=== PATIENT | male | born 1955 | race Caucasian/White ===

== ENCOUNTER 2020-01-25 12:53 | Inpatient (IN) | payer MEDICAID, MEDICARE ==
[2020-01-25 21:23] VITALS: BP 147/47
[2020-01-25] MEDS ORDERED: Magnesium Hydroxide (MOM) 30 mL UDC PO PRN (22:24)
[2020-01-25] MEDS ORDERED: Maalox 30 mL Cup PO PRN (22:24)
[2020-01-26] MEDS ORDERED: OMEPRAZOLE PO SCH (09:00)
[2020-01-26] MEDS ORDERED: SODIUM BICARBONATE PO SCH (09:00)
[2020-01-26] MEDS ORDERED: [UNRECOGNIZED DRUG - OTHER] PO SCH (09:00)
[2020-01-26] MEDS ORDERED: POTASSIUM CHLORIDE 8 MEQ PO SCH (09:00)
[2020-01-26] MEDS ORDERED: LOSARTAN PO SCH (09:00)
[2020-01-26] MEDS ORDERED: [UNRECOGNIZED DRUG - OTHER] PO SCH (09:00)
[2020-01-26] MEDS ORDERED: HYDROCHLOROTHIAZIDE PO SCH (09:00)
[2020-01-26 15:00] LABS: CHOLESTEROL 149 mg/dL (<200); LDL CHOLESTEROL 74 mg/dL (75-193); TRIGLYCERIDES 29 mg/dL (<150)
--- NOTE | 2020-01-26 15:05 | History and Physical ---
History of Present Illness - HPI Chief Complaint: Psychosis HPI: * Patient transferred from [facility] for Acute Psychosis * Admitted to [facility] from [facility] Vital Signs: Last Vital Signs Temp 97.1 F 01/26/20 06:14 Pulse 122 01/26/20 09:27 Resp 20 01/26/20 06:14 BP 176/102 01/26/20 09:27 Pulse Ox 96 01/26/20 06:14 Past Medical History Cardiovascular: Report: HTN Pulmonary: Report: No Pertinent Hx AUTO DAMAGE APPRAISER: Report: Other (Parkinson's) GI: Report: No Pertinent Hx Psych: Report: Psychosis Musculoskeletal: Report: No Pain Rheumatologic: Report: No pertinent Hx Infectious Disease: Report: No Pertinent Hx Renal/: Report: No Pertinent Hx Endocrine: Report: No Pertinent Hx Dermatology: Report: No Pertinent Hx - Past Surgical History Past Surgical History: No pertinent Hx Family Medical History - Family Member Mother History Unknown: Yes Social History Smoke: No Alcohol: None Drugs: None Lives: Detention - Medications Home Medications: Home Medication Medication Instructions Recorded Type Benztropine [Cogentin*] 1 mg PO HS 01/25/20 History Clonazepam 0.5 mg PO BID 01/25/[address] [Depakote DR] 250 mg PO TID 01/25/20 History Lorazepam [Ativan] 1 mg PO Q6H PRN 01/25/20 History Losartan/Hydrochlorothiazide 1 tab PO DAILY 01/25/20 History [Losartan-Hctz 100-12.5 mg Tab] Omeprazole/Sodium Bicarbonate 20 mg PO DAILY 01/25/20 History [Omeprazole-Bicarb 20-1,100 Cap] Potassium Chloride 8 meq PO DAILY 01/25/20 History Primidone [Mysoline] 50 mg PO HS 01/25/20 History - Allergies Allergies/Adverse Reactions: Allergies Allergy/AdvReac Type Severity Reaction Status Date / Time No Known Allergies Allergy Verified 01/25/20 21:23 Review of Systems - Review of Systems Constitutional: Report: No Significant Eyes: Report: No Significant ENT: Report: No Significant Respiratory: Report: No Significant Cardiovascular: Report: No Significant Gastrointestinal: Report: No Significant Genitourinary: Report: No Significant Musculoskeletal: Report: No Significant Skin: Report: No Significant Neurological: Report: Confusion, Other (Tremors) Physical Exam - Physical Exam HEENT: Report: Ears Nose Throat within normal limits, Pharnyx within normal limits Neck: Report: Within normal limits Cardiovascular Systems: Report: Regular, Rate and Rhythm, no murmurs noted Respiratory: Report: Clear to Auscultation of lung browne, Breath Sounds are within normal limits Abdomen: Report: Non-tender to palpation, Bowel Sounds are within normal limits Back: Report: Inspection of back is within normal limits. Extremities: Report: Non-tender to palpation., Patient had full range of motion , No pedal edema was noted on inspection Skin: Report: Color of skin is within normal limits, Warm, Dry, No Rashes noted of the skin Neuro/Psych: Report: CN II-XII intact (Unable to do CN exam due to person unable to follow directions.), No sensory deficit, Other (Tremors) - Lab Results All Lab Results last 24 hours: Laboratory Results - last 24 hr 01/25/20 01/26/20 20:21 12:35 POC Glucose 73 Triglycerides 29 Cholesterol 149 LDL Cholesterol Direct 74 L HDL Cholesterol 59 - Assessment Assessment: * Acute Psychosis * 5150 Hold * HTN * Parkinson's - Plan Plan: * Admit to [facility] * Psychiatry Consult * Continue home meds * Obtain labs Cranial Nerve Assessment - CRANIAL NERVES alcohol swab:: No Distinguishes movements in peripheral field.:: No up, down, sideways:: No on forehead, cheeks and chin, chews symmetrically:: No FACIAL VII: upper: Frowns Symmetrically:: No FACIAL VII: Lower: Smiles Symmetrically:: No both ears:: No GLOSS-PHARYNGEAL IX: Has gag reflex:: No VAGUS X: Can make guttural sounds:: No ACCESSORY XI: Shrugs shoulders symmetrically:: No tremors or fasciculation's:: No - MOTOR spasticity, cogwheel, atrophy, tremor, asterixis, other: No - COORDINATION Finger to nose, heel to chavis, DU, gait, Romberg: No - SENSORY signs, Brudzinski, Kernig, neck rigidity:: No - REFLEXES Brachioradials Right:: No Brachioradials Left:: No Biceps Right:: No Biceps Left:: No Triceps Right:: No Triceps Left:: No Knee Right:: No Knee Left:: No Ankle Right:: No Ankle Left:: No Babinski Right:: No Babinski Left:: No
--- NOTE | 2020-01-27 17:48 | Progress Notes ---
DATE: SUBJECTIVE: The patient was seen and evaluated. The patient's chart was reviewed. Nursing staff reporting that although he slept well last night, he continues to verbally threaten ____ before going to sleep. Today on [id number] evaluation, makes racial slurs. They are inconsistent, inappropriate, unable to engage in conversation as he continues to be hyperfocused on the racial slurs. EXAMINATION: Disorganized, making inappropriate racial slurs, disengaged. ASSESSMENT AND PLAN: History of schizoaffective disorder, comorbid Parkinson's border. Today, he was able to tolerate Seroquel. We will continue increasing Seroquel to 12.5 p.o. b.i.d. [facility]# [id number]
[2020-01-27] MEDS ORDERED: Benztropine 1 MG TAB PO ONE (21:00)
--- NOTE | 2020-01-28 03:38 | Psychiatric Evaluation ---
DATE OF SERVICE: 01/26/2020 Initial psychiatric evaluation, covering for Dr. Shultz. CHIEF COMPLAINT: "Staff stole from me." HISTORY OF PRESENT ILLNESS: This is a 64-year-old male, brought in here from a [facility]ci. He was argumentative, aggressive, paranoid, needing a lot of verbal de-escalation. Today on [id number] evaluation, the patient reports "I think they are stealing from me, I think they are pitt, get them out of me." Poor historian, limited historian, needs a lot of redirection, easily irritable. PAST PSYCHIATRIC HISTORY: History of schizoaffective disorder. PAST MEDICAL HISTORY: Medical doctors to further evaluate her medical record. History of Parkinson's and high blood pressure. PRIOR MEDICATIONS: Reconciled and reviewed. ALLERGIES TO MEDICATIONS: NKDA. PAST PSYCHIATRIC HISTORY: Schizoaffective disorder. SOCIAL HISTORY: Living in a fci. Denies any alcohol, illicit drug use. LEGAL HISTORY: Denied. ONSET OF ILLNESS: Unable to elicit. ESTIMATED LENGTH OF STAY: Between 5-10 days. STRENGTHS: Good support system. WEAKNESSES: Poor coping skills. LABORATORY DATA: Reviewed. COVID negative. MENTAL STATUS EXAMINATION: Disorganized, derails in conversation, easily forgetful, needing a lot of redirection. CURRENT MEDICATIONS: Evaluated. Further information is needed from fci to obtain his home medications which are not available in his chart at this time. We will have the nurse followup on the medication and reassess. In the meantime, we will start low dose Seroquel 12.5 mg at nighttime and increase as tolerated. PRIMARY DIAGNOSIS: Schizoaffective disorder. SECONDARY DIAGNOSIS: Dementia. MEDICAL DIAGNOSIS: As noted above. PLAN: 1. Admit. 2. Both individual and group therapy. 3. Seroquel 12.5. 4. Obtain more collateral information. JOB# [id number]
[2020-01-28] MEDS: Pantoprazole 40 mg EC Tab PO SCH (10:15)
--- NOTE | 2020-01-28 14:41 | Internal Medicine Prog Note ---
Internal Medicine Subjective - Subjective Service Date: 01/28/20 Patient seen and examined:: without staff Patient is:: awake Per staff patient has:: no adverse event, no episodes of fall Internal Medicine Objective - Results Recent Labs: Laboratory Last Values POC Glucose 73 MG/DL (70 - 105) 01/25/20 20:21 Triglycerides 29 mg/dL (<150) 01/26/20 12:35 Cholesterol 149 mg/dL (<200) 01/26/20 12:35 LDL Cholesterol Direct 74 mg/dL (75-193) L 01/26/20 12:35 HDL Cholesterol 59 mg/dL (23-92) 01/26/20 12:35 - Physical Exam Vitals and I&O: Vital Signs Temp 98.6 F 01/28/20 14:35 Pulse 98 01/28/20 14:35 Resp 20 01/28/20 14:35 BP 108/78 01/28/20 14:35 Pulse Ox 95 01/28/20 14:35 Intake & Output 01/27/20 01/28/20 01/28/20 18:59 06:59 18:59 Intake Total 700 120 Balance 700 120 Intake: Oral 700 120 Other: # Voids 2 3 3 # Bowel Movements 0 0 0 Active Medications: Current Medications Acetaminophen (Tylenol) 650 mg PO Q4H PRN PRN Reason: Pain (Mild 1-3) Stop: 03/25/20 22:23 Acetaminophen (Tylenol) 650 mg PO Q4H PRN PRN Reason: Temperature above 101 Stop: 03/25/20 23:13 Al Hydrox/Mg Hydrox/Simethicone (Maalox) 30 ml PO Q4HR PRN PRN Reason: GI DISTRESS Stop: 03/25/20 22:23 Benztropine Mesylate (Cogentin) 1 mg PO HS [facility] Stop: 03/27/20 20:59 Hydrochlorothiazide (Hctz) 12.5 mg PO DAILY [facility] Stop: 03/26/20 08:59 Last Admin: 01/28/20 08:44 Dose: 12.5 mg Losartan Potassium (Cozaar) 100 mg PO DAILY [facility] Stop: 03/26/20 08:59 Last Admin: 01/28/20 08:45 Dose: 100 mg Magnesium Hydroxide (Milk Of Magnesia) 30 ml PO HS PRN PRN Reason: Constipation Pantoprazole Sodium (Protonix) 40 mg PO QDAC [facility] Stop: 03/28/20 09:59 Last Admin: 01/28/20 10:15 Dose: 40 mg Primidone (Mysoline) 50 mg PO HS [facility] Stop: 03/26/20 20:59 Last Admin: 01/27/20 20:53 Dose: 50 mg Quetiapine Fumarate (Seroquel) 50 mg PO HS [facility]; Protocol Stop: 03/28/20 20:59 Zolpidem Tartrate (Ambien) 5 mg PO HS PRN PRN Reason: Insomnia Stop: 03/25/20 22:23 Last Admin: 01/27/20 20:53 Dose: 5 mg General: weak HEENT: NC/AT Neck: Supple Lungs: CTAB Cardiovascular: RRR, Normal S1, Normal S2 Abdomen: soft Extremities: clear Internal Medicine Assmt/Plan - Assessment Assessment: 1. HTN 2. Parkinsons - Plan Plan: continue same meds check cbc, cmp, discussed with galo reviewed medical records
--- NOTE | 2020-01-28 20:53 | Progress Notes ---
DATE: 01/28/2020 Case was discussed with staff of the patient, reviewed records. This is a 64-year-old male who was admitted on 01/26/2020. The patient was brought from a nursing facility. He was argumentative, aggressive, paranoid, and needing a lot of verbal de-escalation. The patient reports, "I think they are stealing from me, I think they are pitt, and get them out of me." He was a limited historian with a history of schizoaffective disorder. The patient denies substance abuse. The patient continues to be a poor historian. He is sleeping well, eating well, and at times verbally threatening. Continues to be inconsistent, confused, unable to tell me why he is here, very disorganized. He is on Seroquel 25 mg at bedtime. I will be increasing the dose to 50 mg at bedtime. No side effects with the medication, no sedation, no nausea, no extrapyramidal symptoms. We will continue outpatient group therapy, milieu therapy, adjust medication as needed. JOB# [id number] GENE
[2020-01-28] MEDS: Benztropine 1 MG TAB PO SCH (21:00)
[2020-01-29] MEDS: Pantoprazole 40 mg EC Tab PO SCH (06:36)
--- NOTE | 2020-01-29 14:48 | Internal Medicine Prog Note ---
Internal Medicine Subjective - Subjective Service Date: 01/29/20 Patient seen and examined:: without staff Patient is:: awake Per staff patient has:: no adverse event, no episodes of fall Internal Medicine Objective - Results Recent Labs: Laboratory Last Values POC Glucose 73 MG/DL (70 - 105) 01/25/20 20:21 Triglycerides 29 mg/dL (<150) 01/26/20 12:35 Cholesterol 149 mg/dL (<200) 01/26/20 12:35 LDL Cholesterol Direct 74 mg/dL (75-193) L 01/26/20 12:35 HDL Cholesterol 59 mg/dL (23-92) 01/26/20 12:35 - Physical Exam Vitals and I&O: Vital Signs Temp 96.8 F 01/29/20 06:37 Pulse 97 01/29/20 08:48 Resp 18 01/29/20 08:00 BP 109/74 01/29/20 08:48 Pulse Ox 100 01/29/20 06:37 Intake & Output 01/28/20 01/29/20 01/29/20 18:59 06:59 18:59 Intake Total 850 240 Balance 850 240 Intake: Oral 850 240 Other: # Voids 4 3 # Bowel Movements 2 0 Active Medications: Current Medications Acetaminophen (Tylenol) 650 mg PO Q4H PRN PRN Reason: Pain (Mild 1-3) Stop: 03/25/20 22:23 Last Admin: 01/29/20 13:43 Dose: 650 mg Acetaminophen (Tylenol) 650 mg PO Q4H PRN PRN Reason: Temperature above 101 Stop: 03/25/20 23:13 Al Hydrox/Mg Hydrox/Simethicone (Maalox) 30 ml PO Q4HR PRN PRN Reason: GI DISTRESS Stop: 03/25/20 22:23 Benztropine Mesylate (Cogentin) 1 mg PO HS [facility] Stop: 03/27/20 20:59 Last Admin: 01/28/20 21:00 Dose: 1 mg Hydrochlorothiazide (Hctz) 12.5 mg PO DAILY [facility] Stop: 03/26/20 08:59 Last Admin: 01/29/20 08:47 Dose: Not Given Losartan Potassium (Cozaar) 100 mg PO DAILY [facility] Stop: 03/26/20 08:59 Last Admin: 01/29/20 08:48 Dose: Not Given Magnesium Hydroxide (Milk Of Magnesia) 30 ml PO HS PRN PRN Reason: Constipation Pantoprazole Sodium (Protonix) 40 mg PO QDAC [facility] Stop: 03/28/20 09:59 Last Admin: 01/29/20 06:36 Dose: 40 mg Primidone (Mysoline) 50 mg PO HS [facility] Stop: 03/26/20 20:59 Last Admin: 01/28/20 21:00 Dose: 50 mg Quetiapine Fumarate (Seroquel) 50 mg PO HS [facility]; Protocol Stop: 03/28/20 20:59 Last Admin: 01/28/20 21:00 Dose: 50 mg Zolpidem Tartrate (Ambien) 5 mg PO HS PRN PRN Reason: Insomnia Stop: 03/25/20 22:23 Last Admin: 01/28/20 21:01 Dose: 5 mg General: weak HEENT: NC/AT Neck: Supple Lungs: CTAB Cardiovascular: RRR, Normal S1, Normal S2 Abdomen: soft Extremities: clear Internal Medicine Assmt/Plan - Assessment Assessment: 1. HTN 2. Parkinsons 3. Rule out Covid-19 - Plan Plan: continue same meds Covid-19 PCR discussed with r.n. reviewed medical records Nutritional Asmnt/Malnutr-PDOC - Dietary Evaluation Malnutrition Findings (Please click <Entered> for more info): Nutritional Asmnt/Malnutrition Start: 01/29/20 14: 36 Text: Status: Complete Freq: Protocol: Document 01/29/20 14:36 KATH (Rec: 01/29/20 14:38 KATH [id number]) Nutritional Asmnt/Malnutrition Patient General Information Nutritional Screening Moderate Risk Diagnosis Acute Psychosis with aggression and paranoia Pertinent Medical Hx/Surgical Hx Parkinsons Disease, HTN Subjective Information Pt is a 65-year-old male admitted on 01/24 d/t acute psychosis with aggression and paranoia. Pt is eating an estimated 50% of meals Per Meal/Nutrition Activity Record . Dietary is currently providing an estimated 2000 kcals and 95 gm Pro, per Pt PO intake this is providing an estimated 1000 kcals and 45gm Pro to meet 57% kcal and 64% Pro needs- inadequate. Pt ate 75-100% meals first admit day and refused meals the following day. Pt requested a different lunch than was provided today, kitchen complied. Per nurse note (01/26 ), pt requires assistance with eating d/t involuntary tremors on BUE. Pt was in the community room at activity table during visit. Pt noted to have unclear speech. Will continue to monitor PO intake, adding Ensure Enlive on lunch tray to encourage increased kcal and protein intake. Anthropometrics HT: 63 WT: 155 LB (70.45 kg) BMI: 19.47(normal) GI/ Skin Integrity GI: WNL, Soft, Flat, Non- tender BM: 01/27 x1 I/O: 1090/Not Noted Skin: Reddened, erythema Jermaine: 17 Diet Order: NA2GM Estimated Energy Needs: ( Geriatric, CBW) 3762-7535 kcals (25-30 kcals/ kg) 70-85g Pro (1.0-1.2 g/kg) 6549-0170 ml (25-30 ml/kg) Current Diet Order/ Nutrition Support NA2GM Pertinent Medications Maalox (PRN), Hydrochlorothiazide, Cozaar, MOM (PRN), Protonix Pertinent Labs No Pertinent Labs Nutritional Hx/Data Height 1.91 m Height (Calculated Centimeters) 190.5 Current Weight (lbs) 70.307 kg Weight (Calculated Kilograms) 70.3 Weight (Calculated Grams) 30356.8 [place] Body Weight 196 LB (89.09 kg) % [place] Body Weight 79 Body Mass Index (BMI) 19.3 Weight Status Approriate GI Symptoms Last BM 01/27 x1 Skin Integrity/Comment: Skin: Reddened, erythema Jermaine: 17 Current %PO Fair (50-74%) Estimated Nutritional Goals BEE in Kcals: Using Current wt Calories/Kcals/Kg 5651-9638 Kcals Calculated 25-30 Protein: Using Current wt Protein g/k.0-1.2 Protein Calculated 70-85 Fluid: ml 4658-4681 ml (25-30 ml/kg) Nutritional Problem No current Nutrition Prob Problem No nutrition diagnosis at this time. Etiology N/A Signs/Symptoms: N/A Malnutrition Related to Morbid Obesity Malnutrition related to morbid obesity No Intervention/Recommendation Comments 1. Continue NA2GM diet as tolerated. 2. Add Ensure Enlive to lunch tray (completed). Expected Outcomes/Goals Expected Outcomes/Goals 1. PO intake to meet 75% of estimated nutritional needs. 2. Monitor PO intake, wt, nutrition related labs, and skin integrity. 3. F/U as moderate risk in 3-5 days, 01/31-02/02
[2020-01-29] MEDS: Benztropine 1 MG TAB PO SCH (20:32)
--- NOTE | 2020-01-29 22:15 | Progress Notes ---
DATE: 01/29/2020 SUBJECTIVE: Case was discussed with staff of the patient, reviewed records. The patient continues to be confused, continues to be paranoid, continues to need redirection, and continues to believe people are stealing from him. The patient continues to be unable to make safe plan for self-care. He tolerated increase in Seroquel with no side effects, no sedation, no nausea, no extrapyramidal symptoms. We will continue outpatient group therapy, milieu therapy, and adjust the medications as needed. JOB# [id number]
[2020-01-30] MEDS: Pantoprazole 40 mg EC Tab PO SCH (06:41)
[2020-01-30 11:22] LABS: WHITE BLOOD COUNT 7.2 K/uL (4.8-10.8)
[2020-01-30 11:23] LABS: HEMATOCRIT 39.9 % (36-54); HEMOGLOBIN 13.4 g/dL (14.0-18.0); MEAN CORPUSCULAR HEMOGLOBIN 32 pg (27-31); MEAN CORPUSCULAR HGB CONC 34 % (32-36); MEAN CORPUSCULAR VOLUME 97 fL (79.0-98.0); RED BLOOD COUNT 4.13 MIL/uL (4.2-6.2); RED CELL DISTRIBUTION WIDTH 13.6 % (9.0-15.0)
[2020-01-30 11:24] LABS: % NEUTROPHILS 75.1 % (40-70); BASOPHILS % (AUTO) 0.3 % (0.0-2.0); EOSINOPHILS # (AUTO) 0.1 K/uL (0.0-0.4); EOSINOPHILS % (AUTO) 1.1 % (0-4); LYMPHOCYTES # (AUTO) 0.9 K/uL (1.0-5.5); LYMPHOCYTES % (AUTO) 13.1 % (20.5-51.5); MONOCYTES # (AUTO) 0.7 K/uL (0.0-1.0); MONOCYTES % (AUTO) 10.4 % (1.7-9.3); NEUTROPHILS # (AUTO) 5.4 K/uL (1.8-7.7); PLATELET COUNT 287 K/uL (130-430)
--- NOTE | 2020-01-30 11:50 | Progress Notes ---
DATE: 01/30/2020 Case was discussed with staff of the patient, reviewed records. The patient does not knows where he is. He knew he was in the hospital. However, thought that he was in [place]. He is not sure the name of the hospital. The patient continues to be somewhat confused. Continues to be unable to make safe plan for self-care. Continues to be unpredictable, impulsive, needing redirection. Sleeping well and eating well. No side effects with the medication, no sedation, no nausea, no extrapyramidal symptoms. Continues to be at times paranoid, needing redirection. I will be increasing his Seroquel to 75 mg at bedtime. We will continue outpatient group therapy, milieu therapy, adjust medication as needed. JOB# [id number] MTDD
[2020-01-30 12:35] LABS: A1C 4.9
[2020-01-30 12:42] LABS: POTASSIUM SERUM 4.2 mmol/L (3.5-5.1)
[2020-01-30 12:43] LABS: BILIRUBIN,TOTAL 0.4 mg/dL (0.0-1.0); CALCIUM SERUM 8.7 mg/dL (8.4-10.2); CREATININE - SERUM 0.7 mg/dL (0.70-1.30); TOTAL PROTEIN,SERUM 6.7 g/dL (6.4-8.3)
--- NOTE | 2020-01-30 18:10 | Internal Medicine Prog Note ---
Internal Medicine Subjective - Subjective Service Date: 01/30/20 Patient seen and examined:: without staff Patient is:: awake Per staff patient has:: no adverse event, no episodes of fall Internal Medicine Objective - Results Result Diagrams: 01/30/20 09:10 01/30/20 09:10 Recent Labs: Laboratory Last Values WBC 7.2 K/uL (4.8-10.8) 01/30/20 09:10 RBC 4.13 MIL/uL (4.2-6.2) L 01/30/20 09:10 Hgb 13.4 g/dL (14.0-18.0) L 01/30/20 09:10 Hct 39.9 % (36-54) 01/30/20 09:10 MCV 97 fL (79.0-98.0) 01/30/20 09:10 MCH 32 pg (27-31) H 01/30/20 09:10 MCHC 34 % (32-36) 01/30/20 09:10 RDW 13.6 % (9.0-15.0) 01/30/20 09:10 Plt Count 287 K/uL (130-430) 01/30/20 09:10 MPV 7.5 fl (7.4-10.4) 01/30/20 09:10 Neut % (Auto) 75.1 % (40-70) H 01/30/20 09:10 Lymph % (Auto) 13.1 % (20.5-51.5) L 01/30/20 09:10 [place] % (Auto) 10.4 % (1.7-9.3) H 01/30/20 09:10 Eos % (Auto) 1.1 % (0-4) 01/30/20 09:10 Baso % (Auto) 0.3 % (0.0-2.0) 01/30/20 09:10 Neut # (Auto) 5.4 K/uL (1.8-7.7) 01/30/20 09:10 Lymph # (Auto) 0.9 K/uL (1.0-5.5) 01/30/20 09:10 [place] # (Auto) 0.7 K/uL (0.0-1.0) 01/30/20 09:10 Eos # (Auto) 0.1 K/uL (0.0-0.4) 01/30/20 09:10 Baso # (Auto) 0.0 K/uL (0.0-0.2) 01/30/20 09:10 Sodium 133 mmol/L (136-145) L 01/30/20 09:10 Potassium 4.2 mmol/L (3.5-5.1) 01/30/20 09:10 Chloride 98 mmol/L (98-107) 01/30/20 09:10 Carbon Dioxide 32 mmol/L (23-29) H 01/30/20 09:10 Anion Gap 7 (5-15) 01/30/20 09:10 BUN 21 mg/dL (8-21) 01/30/20 09:10 Creatinine 0.70 mg/dL (0.70-1.30) 01/30/20 09:10 Glucose 107 mg/dL (70-99) H 01/30/20 09:10 POC Glucose 73 MG/DL (70 - 105) 01/25/20 20:21 Calcium 8.7 mg/dL (8.4-10.2) 01/30/20 09:10 Total Bilirubin 0.4 mg/dL (0.0-1.0) 01/30/20 09:10 AST 15 U/L (10-37) 01/30/20 09:10 ALT 26 U/L (12-78) 01/30/20 09:10 Alkaline Phosphatase 46 U/L (46-116) 01/30/20 09:10 Total Protein 6.7 g/dL (6.4-8.3) 01/30/20 09:10 Albumin 3.0 g/dL (3.4-5.0) L 01/30/20 09:10 Triglycerides 29 mg/dL (<150) 01/26/20 12:35 Cholesterol 149 mg/dL (<200) 01/26/20 12:35 LDL Cholesterol Direct 74 mg/dL (75-193) L 01/26/20 12:35 HDL Cholesterol 59 mg/dL (23-92) 01/26/20 12:35 - Physical Exam Vitals and I&O: Vital Signs Temp 97.1 F 01/30/20 14:00 Pulse 84 01/30/20 14:00 Resp 20 01/30/20 14:00 BP 122/74 01/30/20 14:00 Pulse Ox 98 01/30/20 14:00 Intake & Output 01/29/20 01/30/20 01/30/20 18:59 06:59 18:59 Intake Total 600 240 120 Balance 600 240 120 Intake: Oral 600 240 120 Other: # Voids 3 3 2 # Bowel Movements 0 0 0 Stool Characteristics Formed Brown Active Medications: Current Medications Acetaminophen (Tylenol) 650 mg PO Q4H PRN PRN Reason: Pain (Mild 1-3) Stop: 03/25/20 22:23 Last Admin: 01/30/20 13:17 Dose: 650 mg Acetaminophen (Tylenol) 650 mg PO Q4H PRN PRN Reason: Temperature above 101 Stop: 03/25/20 23:13 Al Hydrox/Mg Hydrox/Simethicone (Maalox) 30 ml PO Q4HR PRN PRN Reason: GI DISTRESS Stop: 03/25/20 22:23 Benztropine Mesylate (Cogentin) 1 mg PO HS RACHNA Stop: 03/27/20 20:59 Last Admin: 01/29/20 20:32 Dose: 1 mg Hydrochlorothiazide (Hctz) 12.5 mg PO DAILY RACHNA Stop: 03/26/20 08:59 Last Admin: 01/30/20 08:33 Dose: Not Given Losartan Potassium (Cozaar) 100 mg PO DAILY RACHNA Stop: 03/26/20 08:59 Last Admin: 01/30/20 08:33 Dose: Not Given Magnesium Hydroxide (Milk Of Magnesia) 30 ml PO HS PRN PRN Reason: Constipation Pantoprazole Sodium (Protonix) 40 mg PO QDAC RACHNA Stop: 03/28/20 09:59 Last Admin: 01/30/20 06:41 Dose: 40 mg Primidone (Mysoline) 50 mg PO HS RACHNA Stop: 03/26/20 20:59 Last Admin: 01/29/20 20:33 Dose: 50 mg Quetiapine Fumarate 50 mg/ (Quetiapine Fumarate 25 mg) 75 mg PO HS RACHNA Stop: 03/30/20 20:59 Zolpidem Tartrate (Ambien) 5 mg PO HS PRN PRN Reason: Insomnia Stop: 03/25/20 22:23 Last Admin: 01/29/20 20:32 Dose: 5 mg General: weak HEENT: NC/AT Neck: Supple Lungs: CTAB Cardiovascular: RRR, Normal S1, Normal S2 Abdomen: soft Extremities: clear Internal Medicine Assmt/Plan - Assessment Assessment: 1. HTN 2. Parkinsons - Plan Plan: continue cozaar and HCTZ for BP discussed with rShahnazn. reviewed medical records Nutritional Asmnt/Malnutr-PDOC - Dietary Evaluation Malnutrition Findings (Please click <Entered> for more info): Nutritional Asmnt/Malnutrition Start: 01/29/20 14: 36 Text: Status: Complete Freq: Protocol: Document 01/29/20 14:36 KATH (Rec: 01/29/20 14:38 KATH [id number]) Nutritional Asmnt/Malnutrition Patient General Information Nutritional Screening Moderate Risk Diagnosis Acute Psychosis with aggression and paranoia Pertinent Medical Hx/Surgical Hx Parkinsons Disease, HTN Subjective Information Pt is a 65-year-old male admitted on 01/24 d/t acute psychosis with aggression and paranoia. Pt is eating an estimated 50% of meals Per Meal/Nutrition Activity Record . Dietary is currently providing an estimated 2000 kcals and 95 gm Pro, per Pt PO intake this is providing an estimated 1000 kcals and 45gm Pro to meet 57% kcal and 64% Pro needs- inadequate. Pt ate 75-100% meals first admit day and refused meals the following day. Pt requested a different lunch than was provided today, kitchen complied. Per nurse note (01/26 ), pt requires assistance with eating d/t involuntary tremors on BUE. Pt was in the community room at activity table during visit. Pt noted to have unclear speech. Will continue to monitor PO intake, adding Ensure Enlive on lunch tray to encourage increased kcal and protein intake. Anthropometrics HT: 63 WT: 155 LB (70.45 kg) BMI: 19.47(normal) GI/ Skin Integrity GI: WNL, Soft, Flat, Non- tender BM: 01/27 x1 I/O: 1090/Not Noted Skin: Reddened, erythema Jermaine: 17 Diet Order: NA2GM Estimated Energy Needs: ( Geriatric, CBW) 3698-8652 kcals (25-30 kcals/ kg) 70-85g Pro (1.0-1.2 g/kg) 4707-4067 ml (25-30 ml/kg) Current Diet Order/ Nutrition Support NA2GM Pertinent Medications Maalox (PRN), Hydrochlorothiazide, Cozaar, MOM (PRN), Protonix Pertinent Labs No Pertinent Labs Nutritional Hx/Data Height 1.91 m Height (Calculated Centimeters) 190.5 Current Weight (lbs) 70.307 kg Weight (Calculated Kilograms) 70.3 Weight (Calculated Grams) 56905.8 [place] Body Weight 196 LB (89.09 kg) % [place] Body Weight 79 Body Mass Index (BMI) 19.3 Weight Status Approriate GI Symptoms Last BM 01/27 x1 Skin Integrity/Comment: Skin: Reddened, erythema Jermaine: 17 Current %PO Fair (50-74%) Estimated Nutritional Goals BEE in Kcals: Using Current wt Calories/Kcals/Kg 6053-1070 Kcals Calculated 25-30 Protein: Using Current wt Protein g/k.0-1.2 Protein Calculated 70-85 Fluid: ml 1863-0783 ml (25-30 ml/kg) Nutritional Problem No current Nutrition Prob Problem No nutrition diagnosis at this time. Etiology N/A Signs/Symptoms: N/A Malnutrition Related to Morbid Obesity Malnutrition related to morbid obesity No Intervention/Recommendation Comments 1. Continue NA2GM diet as tolerated. 2. Add Ensure Enlive to lunch tray (completed). Expected Outcomes/Goals Expected Outcomes/Goals 1. PO intake to meet 75% of estimated nutritional needs. 2. Monitor PO intake, wt, nutrition related labs, and skin integrity. 3. F/U as moderate risk in 3-5 days, 01/31-02/02
[2020-01-30] MEDS: Benztropine 1 MG TAB PO SCH (21:07)
[2020-01-31] MEDS: Pantoprazole 40 mg EC Tab PO SCH (06:47)
--- NOTE | 2020-01-31 12:06 | Progress Notes ---
DATE: 01/31/2020 Case was discussed with staff of the patient, reviewed records. The patient continues to have disheveled, disorganized, internally preoccupied. Continues to have poor insight, continues to be unable to make safe plan for self-care. Sleeping better, eating better. Continues to be at times paranoid and delusional. No side effects with the medication, no sedation, no nausea, no extrapyramidal symptoms. He tolerated increase in Seroquel with no side effects. We will continue outpatient group therapy, milieu therapy, and adjust medications as needed. JOB# [id number]
--- NOTE | 2020-01-31 15:58 | Internal Medicine Prog Note ---
Internal Medicine Subjective - Subjective Service Date: 01/31/20 Patient seen and examined:: without staff (no fevers, no cough, no sob) Patient is:: awake Per staff patient has:: no adverse event, no episodes of fall Internal Medicine Objective - Results Result Diagrams: 01/30/20 09:10 01/30/20 09:10 Recent Labs: Laboratory Last Values WBC 7.2 K/uL (4.8-10.8) 01/30/20 09:10 RBC 4.13 MIL/uL (4.2-6.2) L 01/30/20 09:10 Hgb 13.4 g/dL (14.0-18.0) L 01/30/20 09:10 Hct 39.9 % (36-54) 01/30/20 09:10 MCV 97 fL (79.0-98.0) 01/30/20 09:10 MCH 32 pg (27-31) H 01/30/20 09:10 MCHC 34 % (32-36) 01/30/20 09:10 RDW 13.6 % (9.0-15.0) 01/30/20 09:10 Plt Count 287 K/uL (130-430) 01/30/20 09:10 MPV 7.5 fl (7.4-10.4) 01/30/20 09:10 Neut % (Auto) 75.1 % (40-70) H 01/30/20 09:10 Lymph % (Auto) 13.1 % (20.5-51.5) L 01/30/20 09:10 [place] % (Auto) 10.4 % (1.7-9.3) H 01/30/20 09:10 Eos % (Auto) 1.1 % (0-4) 01/30/20 09:10 Baso % (Auto) 0.3 % (0.0-2.0) 01/30/20 09:10 Neut # (Auto) 5.4 K/uL (1.8-7.7) 01/30/20 09:10 Lymph # (Auto) 0.9 K/uL (1.0-5.5) 01/30/20 09:10 [place] # (Auto) 0.7 K/uL (0.0-1.0) 01/30/20 09:10 Eos # (Auto) 0.1 K/uL (0.0-0.4) 01/30/20 09:10 Baso # (Auto) 0.0 K/uL (0.0-0.2) 01/30/20 09:10 Sodium 133 mmol/L (136-145) L 01/30/20 09:10 Potassium 4.2 mmol/L (3.5-5.1) 01/30/20 09:10 Chloride 98 mmol/L (98-107) 01/30/20 09:10 Carbon Dioxide 32 mmol/L (23-29) H 01/30/20 09:10 Anion Gap 7 (5-15) 01/30/20 09:10 BUN 21 mg/dL (8-21) 01/30/20 09:10 Creatinine 0.70 mg/dL (0.70-1.30) 01/30/20 09:10 Glucose 107 mg/dL (70-99) H 01/30/20 09:10 POC Glucose 73 MG/DL (70 - 105) 01/25/20 20:21 Calcium 8.7 mg/dL (8.4-10.2) 01/30/20 09:10 Total Bilirubin 0.4 mg/dL (0.0-1.0) 01/30/20 09:10 AST 15 U/L (10-37) 01/30/20 09:10 ALT 26 U/L (12-78) 01/30/20 09:10 Alkaline Phosphatase 46 U/L (46-116) 01/30/20 09:10 Total Protein 6.7 g/dL (6.4-8.3) 01/30/20 09:10 Albumin 3.0 g/dL (3.4-5.0) L 01/30/20 09:10 Triglycerides 29 mg/dL (<150) 01/26/20 12:35 Cholesterol 149 mg/dL (<200) 01/26/20 12:35 LDL Cholesterol Direct 74 mg/dL (75-193) L 01/26/20 12:35 HDL Cholesterol 59 mg/dL (23-92) 01/26/20 12:35 - Physical Exam Vitals and I&O: Vital Signs Temp 98.8 F 01/31/20 14:00 Pulse 80 01/31/20 14:00 Resp 20 01/31/20 14:00 BP 198/87 01/31/20 14:00 Pulse Ox 98 01/31/20 14:00 Intake & Output 01/30/20 01/31/20 01/31/20 18:59 06:59 18:59 Intake Total 720 120 Balance 720 120 Intake: Oral 720 120 Other: # Voids 4 1 # Bowel Movements 1 0 Active Medications: Current Medications Acetaminophen (Tylenol) 650 mg PO Q4H PRN PRN Reason: Pain (Mild 1-3) Stop: 03/25/20 22:23 Last Admin: 01/30/20 13:17 Dose: 650 mg Acetaminophen (Tylenol) 650 mg PO Q4H PRN PRN Reason: Temperature above 101 Stop: 03/25/20 23:13 Al Hydrox/Mg Hydrox/Simethicone (Maalox) 30 ml PO Q4HR PRN PRN Reason: GI DISTRESS Stop: 03/25/20 22:23 Benztropine Mesylate (Cogentin) 1 mg PO HS RACHNA Stop: 03/27/20 20:59 Last Admin: 01/30/20 21:07 Dose: 1 mg Hydrochlorothiazide (Hctz) 12.5 mg PO DAILY RACHNA Stop: 03/26/20 08:59 Last Admin: 01/31/20 08:31 Dose: 12.5 mg Losartan Potassium (Cozaar) 100 mg PO DAILY RACHNA Stop: 03/26/20 08:59 Last Admin: 01/31/20 08:31 Dose: 100 mg Magnesium Hydroxide (Milk Of Magnesia) 30 ml PO HS PRN PRN Reason: Constipation Pantoprazole Sodium (Protonix) 40 mg PO QDAC RACHNA Stop: 03/28/20 09:59 Last Admin: 01/31/20 06:47 Dose: 40 mg Primidone (Mysoline) 50 mg PO HS RACHNA Stop: 03/26/20 20:59 Last Admin: 01/30/20 21:07 Dose: 50 mg Quetiapine Fumarate 50 mg/ (Quetiapine Fumarate 25 mg) 75 mg PO HS RACHNA Stop: 03/30/20 20:59 Last Admin: 01/30/20 21:08 Dose: 75 mg Zolpidem Tartrate (Ambien) 5 mg PO HS PRN PRN Reason: Insomnia Stop: 03/25/20 22:23 Last Admin: 01/30/20 23:39 Dose: 5 mg General: weak HEENT: NC/AT Neck: Supple Lungs: CTAB Cardiovascular: RRR, Normal S1, Normal S2 Abdomen: soft Extremities: clear Internal Medicine Assmt/Plan - Assessment Assessment: 1. HTN 2. Parkinsons - Plan Plan: continue cozaar and HCTZ for BP discussed with resau. reviewed medical records Nutritional Asmnt/Malnutr-PDOC - Dietary Evaluation Malnutrition Findings (Please click <Entered> for more info): Nutritional Asmnt/Malnutrition Start: 01/29/20 14: 36 Text: Status: Complete Freq: Protocol: Document 01/29/20 14:36 KATH (Rec: 01/29/20 14:38 KATH [id number]) Nutritional Asmnt/Malnutrition Patient General Information Nutritional Screening Moderate Risk Diagnosis Acute Psychosis with aggression and paranoia Pertinent Medical Hx/Surgical Hx Parkinsons Disease, HTN Subjective Information Pt is a 65-year-old male admitted on 01/24 d/t acute psychosis with aggression and paranoia. Pt is eating an estimated 50% of meals Per Meal/Nutrition Activity Record . Dietary is currently providing an estimated 2000 kcals and 95 gm Pro, per Pt PO intake this is providing an estimated 1000 kcals and 45gm Pro to meet 57% kcal and 64% Pro needs- inadequate. Pt ate 75-100% meals first admit day and refused meals the following day. Pt requested a different lunch than was provided today, kitchen complied. Per nurse note (01/26 ), pt requires assistance with eating d/t involuntary tremors on BUE. Pt was in the community room at activity table during visit. Pt noted to have unclear speech. Will continue to monitor PO intake, adding Ensure Enlive on lunch tray to encourage increased kcal and protein intake. Anthropometrics HT: 63 WT: 155 LB (70.45 kg) BMI: 19.47(normal) GI/ Skin Integrity GI: WNL, Soft, Flat, Non- tender BM: 01/27 x1 I/O: 1090/Not Noted Skin: Reddened, erythema Jermaine: 17 Diet Order: NA2GM Estimated Energy Needs: ( Geriatric, CBW) 4241-1164 kcals (25-30 kcals/ kg) 70-85g Pro (1.0-1.2 g/kg) 9322-5301 ml (25-30 ml/kg) Current Diet Order/ Nutrition Support NA2GM Pertinent Medications Maalox (PRN), Hydrochlorothiazide, Cozaar, MOM (PRN), Protonix Pertinent Labs No Pertinent Labs Nutritional Hx/Data Height 1.91 m Height (Calculated Centimeters) 190.5 Current Weight (lbs) 70.307 kg Weight (Calculated Kilograms) 70.3 Weight (Calculated Grams) 38370.8 [place] Body Weight 196 LB (89.09 kg) % [place] Body Weight 79 Body Mass Index (BMI) 19.3 Weight Status Approriate GI Symptoms Last BM 01/27 x1 Skin Integrity/Comment: Skin: Reddened, erythema Jermaine: 17 Current %PO Fair (50-74%) Estimated Nutritional Goals BEE in Kcals: Using Current wt Calories/Kcals/Kg 1849-3332 Kcals Calculated 25-30 Protein: Using Current wt Protein g/k.0-1.2 Protein Calculated 70-85 Fluid: ml 8989-6155 ml (25-30 ml/kg) Nutritional Problem No current Nutrition Prob Problem No nutrition diagnosis at this time. Etiology N/A Signs/Symptoms: N/A Malnutrition Related to Morbid Obesity Malnutrition related to morbid obesity No Intervention/Recommendation Comments 1. Continue NA2GM diet as tolerated. 2. Add Ensure Enlive to lunch tray (completed). Expected Outcomes/Goals Expected Outcomes/Goals 1. PO intake to meet 75% of estimated nutritional needs. 2. Monitor PO intake, wt, nutrition related labs, and skin integrity. 3. F/U as moderate risk in 3-5 days, 01/31-02/02
[2020-01-31] MEDS: Benztropine 1 MG TAB PO SCH (20:27)
[2020-02-01] MEDS: Pantoprazole 40 mg EC Tab PO SCH (06:41)
[2020-02-01] MEDS: Benztropine 1 MG TAB PO SCH (20:40)
--- NOTE | 2020-02-01 21:26 | Progress Notes ---
DATE: 02/01/2020 SUBJECTIVE: Case was discussed with staff of the patient, reviewed records. The patient continues to look disheveled, internally preoccupied. Continues to have poor insight, unable to make safe plan for self-care, though he is able to tell me the date, where he is, why he is here. No side effects with the medication, no sedation, no nausea, no extrapyramidal symptoms. He tolerated the medication with no side effects, no sedation, no nausea, no extrapyramidal symptoms. I will be increasing the Seroquel 100 mg at bedtime. We will continue outpatient group therapy, milieu therapy, and adjust medication as needed. JOB# [id number] GENE
[2020-02-02] MEDS: Pantoprazole 40 mg EC Tab PO SCH (06:37)
--- NOTE | 2020-02-02 16:21 | Progress Notes ---
DATE: 02/02/[address] Shultz. SUBJECTIVE: The patient was interviewed. Case was discussed with staff. Chart and records were reviewed. Per the staff, the patient has been alert and oriented x 1, has had difficulty sleeping, including only sleeping about 1 or 2 hours last night. Also, has episodes of yelling loud impulsively. He appears disheveled. He is overall uncooperative. He is not able to engage very much. He has no plan for self-care. No side effects have been noted to his medication. MENTAL STATUS EXAMINATION: The patient is an elderly male lying in the hospital bed, unkempt, disheveled appearing, poor eye contact, rambling speech. Mood and affect appear to be somewhat labile. Thought process is disorganized. Appears to be suspicious, paranoid and internally preoccupied. Poor insight, judgment and impulse control. Alert and oriented x 2. ASSESSMENT: The patient reports acute psychiatric hospitalization given the severity of his condition. The patient's medications were recently adjusted. His Depakote was recently restarted as well. No side effects have been noted. PLAN: We will continue the patient's acute hospitalization. We will continue his medications as prescribed. We will also encourage the patient to verbalize his needs and participate in groups and milieu therapy as well as attend to his hygiene. JOB# [id number]
[2020-02-02] MEDS: Benztropine 1 MG TAB PO SCH (20:51)
[2020-02-03] MEDS: Pantoprazole 40 mg EC Tab PO SCH (06:40)
--- NOTE | 2020-02-03 12:41 | Progress Notes ---
DATE: 02/03/2020 Covering for Izabela Shultz MD SUBJECTIVE: The patient was interviewed. Case was discussed with staff. Chart and records were reviewed. The patient continues to have episodes of getting up without assistance. He also appears to be confused, impulsive, easily agitated and needs constant redirection. The patient is poorly cooperative with the interview, appears to be impulsive, anxious, restless and unable to cooperate much and has no plan for self-care. MENTAL STATUS EXAMINATION: The patient is an elderly male, in hospital bed, unkempt, disheveled, poor eye contact, rambling speech. Mood and affect are labile. Thought process disorganized, suspicious, paranoid and internally preoccupied. Poor insight, judgment and impulse control. Alert and oriented x 2. ASSESSMENT AND PLAN: The patient requires acute psychiatric hospitalization due to severity of his condition. The patient is tolerating his medications well without any side effects. We will consider up titrating his Seroquel. Also, encouraged the patient to verbalize his needs and participate in group and milieu therapy. JOB# [id number]
[2020-02-03] MEDS: Benztropine 1 MG TAB PO SCH (21:14)
[2020-02-04] MEDS: Pantoprazole 40 mg EC Tab PO SCH (06:44)
[2020-02-04] MEDS: Benztropine 1 MG TAB PO SCH (20:45)
[2020-02-05] MEDS: Pantoprazole 40 mg EC Tab PO SCH (06:41)
--- NOTE | 2020-02-05 07:58 | Progress Notes ---
DATE: 02/04/2020 Case was discussed with staff of the patient, reviewed records. The patient continues to be isolating himself, staying in bed, continues to have episodes of anxiety, continues to have episodes of feeling confused, though he is oriented x 3. Continues to be impulsive, anxious, unpredictable. Continues to need continued hospitalization because of his confusion, acting out behavior, psychosis. No side effects with the medication, no sedation, no nausea, no extrapyramidal symptoms. He tolerated the increase in Seroquel 200 mg at bedtime. He is also on Depakote 250 mg 3 times a day. We will continue outpatient group therapy, milieu therapy, adjust medication as needed. JOB# [id number]
--- NOTE | 2020-02-05 12:28 | Progress Notes ---
DATE: 02/05/2020 Case was discussed with staff of the patient, reviewed records. The patient has been hard to redirect. He also has a fall risk, though he is able to tell me the dose, the date, but he is not sure why he is here. . He is sleeping well, eating well and generally preoccupied. I will be initiating him on Namenda to help with his confusion and dementing process. We will continue outpatient group therapy, milieu therapy, adjust medication as needed. JOB# [id number] MTDChuck
--- NOTE | 2020-02-05 15:30 | Internal Medicine Prog Note ---
Internal Medicine Subjective - Subjective Service Date: 02/05/20 Patient seen and examined:: without staff Patient is:: awake Per staff patient has:: no adverse event, no episodes of fall Internal Medicine Objective - Results Result Diagrams: 01/30/20 09:10 01/30/20 09:10 Recent Labs: Laboratory Last Values WBC 7.2 K/uL (4.8-10.8) 01/30/20 09:10 RBC 4.13 MIL/uL (4.2-6.2) L 01/30/20 09:10 Hgb 13.4 g/dL (14.0-18.0) L 01/30/20 09:10 Hct 39.9 % (36-54) 01/30/20 09:10 MCV 97 fL (79.0-98.0) 01/30/20 09:10 MCH 32 pg (27-31) H 01/30/20 09:10 MCHC 34 % (32-36) 01/30/20 09:10 RDW 13.6 % (9.0-15.0) 01/30/20 09:10 Plt Count 287 K/uL (130-430) 01/30/20 09:10 MPV 7.5 fl (7.4-10.4) 01/30/20 09:10 Neut % (Auto) 75.1 % (40-70) H 01/30/20 09:10 Lymph % (Auto) 13.1 % (20.5-51.5) L 01/30/20 09:10 [place] % (Auto) 10.4 % (1.7-9.3) H 01/30/20 09:10 Eos % (Auto) 1.1 % (0-4) 01/30/20 09:10 Baso % (Auto) 0.3 % (0.0-2.0) 01/30/20 09:10 Neut # (Auto) 5.4 K/uL (1.8-7.7) 01/30/20 09:10 Lymph # (Auto) 0.9 K/uL (1.0-5.5) 01/30/20 09:10 [place] # (Auto) 0.7 K/uL (0.0-1.0) 01/30/20 09:10 Eos # (Auto) 0.1 K/uL (0.0-0.4) 01/30/20 09:10 Baso # (Auto) 0.0 K/uL (0.0-0.2) 01/30/20 09:10 Sodium 133 mmol/L (136-145) L 01/30/20 09:10 Potassium 4.2 mmol/L (3.5-5.1) 01/30/20 09:10 Chloride 98 mmol/L (98-107) 01/30/20 09:10 Carbon Dioxide 32 mmol/L (23-29) H 01/30/20 09:10 Anion Gap 7 (5-15) 01/30/20 09:10 BUN 21 mg/dL (8-21) 01/30/20 09:10 Creatinine 0.70 mg/dL (0.70-1.30) 01/30/20 09:10 Glucose 107 mg/dL (70-99) H 01/30/20 09:10 POC Glucose 104 MG/DL (70 - 105) 02/03/20 06:33 Calcium 8.7 mg/dL (8.4-10.2) 01/30/20 09:10 Total Bilirubin 0.4 mg/dL (0.0-1.0) 01/30/20 09:10 AST 15 U/L (10-37) 01/30/20 09:10 ALT 26 U/L (12-78) 01/30/20 09:10 Alkaline Phosphatase 46 U/L (46-116) 01/30/20 09:10 Total Protein 6.7 g/dL (6.4-8.3) 01/30/20 09:10 Albumin 3.0 g/dL (3.4-5.0) L 01/30/20 09:10 Triglycerides 29 mg/dL (<150) 01/26/20 12:35 Cholesterol 149 mg/dL (<200) 01/26/20 12:35 LDL Cholesterol Direct 74 mg/dL (75-193) L 01/26/20 12:35 HDL Cholesterol 59 mg/dL (23-92) 01/26/20 12:35 Coronavirus (PCR) Negative (Negative) 02/01/20 13:20 - Physical Exam Vitals and I&O: Vital Signs Temp 97.8 F 02/05/20 06:59 Pulse 102 02/05/20 09:44 Resp 16 07/07/20 08:00 BP 129/72 02/05/20 09:45 Pulse Ox 99 02/05/20 06:59 Intake & Output 02/04/20 02/05/20 02/05/20 18:59 06:59 18:59 Intake Total 1200 120 Balance 1200 120 Intake: Oral 960 120 Other 240 Other: # Voids 3 3 # Bowel Movements 0 0 Active Medications: Current Medications Acetaminophen (Tylenol) 650 mg PO Q4H PRN PRN Reason: Pain (Mild 1-3) Stop: 03/25/20 22:23 Last Admin: 02/02/20 20:50 Dose: 650 mg Acetaminophen (Tylenol) 650 mg PO Q4H PRN PRN Reason: Temperature above 101 Stop: 03/25/20 23:13 Al Hydrox/Mg Hydrox/Simethicone (Maalox) 30 ml PO Q4HR PRN PRN Reason: GI DISTRESS Stop: 03/25/20 22:23 Benztropine Mesylate (Cogentin) 1 mg PO HS [facility] Stop: 03/27/20 20:59 Last Admin: 02/04/20 20:45 Dose: 1 mg Divalproex Sodium (Depakote Dr) 250 mg PO TID [facility]; Protocol Stop: 04/02/20 13:59 Last Admin: 02/05/20 13:17 Dose: 250 mg Hydrochlorothiazide (Hctz) 12.5 mg PO DAILY [facility] Stop: 03/26/20 08:59 Last Admin: 02/05/20 09:45 Dose: 12.5 mg Lorazepam (Ativan) 0.5 mg PO Q4HR PRN; Protocol PRN Reason: Agitation Stop: 04/03/20 11:29 Last Admin: 02/04/20 22:11 Dose: 0.5 mg Losartan Potassium (Cozaar) 100 mg PO DAILY [facility] Stop: 03/26/20 08:59 Last Admin: 02/05/20 09:44 Dose: 100 mg Magnesium Hydroxide (Milk Of Magnesia) 30 ml PO HS PRN PRN Reason: Constipation Memantine (Namenda) 5 mg PO DAILY [facility] Stop: 04/05/20 08:59 Last Admin: 02/05/20 09:50 Dose: 5 mg Pantoprazole Sodium (Protonix) 40 mg PO QDAC [facility] Stop: 03/28/20 09:59 Last Admin: 02/05/20 06:41 Dose: 40 mg Primidone (Mysoline) 50 mg PO HS [facility] Stop: 03/26/20 20:59 Last Admin: 02/04/20 20:45 Dose: 50 mg Quetiapine Fumarate (Seroquel) 100 mg PO HS [facility] Stop: 04/01/20 20:59 Last Admin: 02/04/20 20:45 Dose: 100 mg Zolpidem Tartrate (Ambien) 5 mg PO HS PRN PRN Reason: Insomnia Stop: 03/25/20 22:23 Last Admin: 02/04/20 20:46 Dose: 5 mg General: weak HEENT: NC/AT Neck: Supple Lungs: CTAB Cardiovascular: RRR, Normal S1, Normal S2 Abdomen: soft Extremities: clear Internal Medicine Assmt/Plan - Assessment Assessment: 1. HTN 2. Parkinsons - Plan Plan: continue cozaar and HCTZ for BP discussed with r.n. reviewed medical records Nutritional Asmnt/Malnutr-PDOC - Dietary Evaluation Malnutrition Findings (Please click <Entered> for more info): Nutritional Asmnt/Malnutrition Start: 01/29/20 14: 36 Text: Status: Complete Freq: Protocol: Document 01/29/20 14:36 KATH (Rec: 01/29/20 14:38 KATH [id number]) Nutritional Asmnt/Malnutrition Patient General Information Nutritional Screening Moderate Risk Diagnosis Acute Psychosis with aggression and paranoia Pertinent Medical Hx/Surgical Hx Parkinsons Disease, HTN Subjective Information Pt is a 65-year-old male admitted on 01/24 d/t acute psychosis with aggression and paranoia. Pt is eating an estimated 50% of meals Per Meal/Nutrition Activity Record . Dietary is currently providing an estimated 2000 kcals and 95 gm Pro, per Pt PO intake this is providing an estimated 1000 kcals and 45gm Pro to meet 57% kcal and 64% Pro needs- inadequate. Pt ate 75-100% meals first admit day and refused meals the following day. Pt requested a different lunch than was provided today, kitchen complied. Per nurse note (01/26 ), pt requires assistance with eating d/t involuntary tremors on BUE. Pt was in the community room at activity table during visit. Pt noted to have unclear speech. Will continue to monitor PO intake, adding Ensure Enlive on lunch tray to encourage increased kcal and protein intake. Anthropometrics HT: 63 WT: 155 LB (70.45 kg) BMI: 19.47(normal) GI/ Skin Integrity GI: WNL, Soft, Flat, Non- tender BM: 01/27 x1 I/O: 1090/Not Noted Skin: Reddened, erythema Jermaine: 17 Diet Order: NA2GM Estimated Energy Needs: ( Geriatric, CBW) 2406-1439 kcals (25-30 kcals/ kg) 70-85g Pro (1.0-1.2 g/kg) 1361-5354 ml (25-30 ml/kg) Current Diet Order/ Nutrition Support NA2GM Pertinent Medications Maalox (PRN), Hydrochlorothiazide, Cozaar, MOM (PRN), Protonix Pertinent Labs No Pertinent Labs Nutritional Hx/Data Height 1.91 m Height (Calculated Centimeters) 190.5 Current Weight (lbs) 70.307 kg Weight (Calculated Kilograms) 70.3 Weight (Calculated Grams) 69460.8 [place] Body Weight 196 LB (89.09 kg) % [place] Body Weight 79 Body Mass Index (BMI) 19.3 Weight Status Approriate GI Symptoms Last BM 01/27 x1 Skin Integrity/Comment: Skin: Reddened, erythema Jermaine: 17 Current %PO Fair (50-74%) Estimated Nutritional Goals BEE in Kcals: Using Current wt Calories/Kcals/Kg 7204-5498 Kcals Calculated 25-30 Protein: Using Current wt Protein g/k.0-1.2 Protein Calculated 70-85 Fluid: ml 0021-1615 ml (25-30 ml/kg) Nutritional Problem No current Nutrition Prob Problem No nutrition diagnosis at this time. Etiology N/A Signs/Symptoms: N/A Malnutrition Related to Morbid Obesity Malnutrition related to morbid obesity No Intervention/Recommendation Comments 1. Continue NA2GM diet as tolerated. 2. Add Ensure Enlive to lunch tray (completed). Expected Outcomes/Goals Expected Outcomes/Goals 1. PO intake to meet 75% of estimated nutritional needs. 2. Monitor PO intake, wt, nutrition related labs, and skin integrity. 3. F/U as moderate risk in 3-5 days, /-7/
[2020-02-05] MEDS: Benztropine 1 MG TAB PO SCH (21:03)
[2020-02-06] MEDS: Pantoprazole 40 mg EC Tab PO SCH (06:42)
--- NOTE | 2020-02-06 20:46 | Progress Notes ---
DATE: 02/06/2020 Case was discussed with staff of the patient, reviewed records. The patient continues to look disheveled, disorganized, internally preoccupied. Continues to have poor insight, unable to make safe plan for his self-care. He is a fall risk and he is on fall precautions. He is compliant with the medication with no side effects, no sedation, no nausea, no extrapyramidal symptoms. MENTAL STATUS EXAMINATION: The patient is appropriately dressed, not well groomed. He has a stare on his face. He believes this is definitely 02/05/2020. Continues to be unable to make safe plan for his self-care. He knew he was in the hospital, but he is not sure why he is here. Unable to carry a reasonable conversation. We will continue the patient in group therapy, milieu therapy, and adjust the medications as needed. JOB# [id number] GENE
[2020-02-06] MEDS: Benztropine 1 MG TAB PO SCH (21:30)
[2020-02-07] MEDS: Pantoprazole 40 mg EC Tab PO SCH (06:49)
--- NOTE | 2020-02-07 21:30 | Progress Notes ---
DATE: 02/07/2020 FOLLOWUP PROGRESS NOTE Case was discussed with staff of the patient, reviewed records. The patient continues to be internally preoccupied, stays to himself. He sleeps well, he eats well. He is a fall risk and no side effects with the medication, no sedation, no nausea and no extrapyramidal symptoms. Tolerating increase in Depakote. He continues though he is able to tell the date, but he is very disorganized and internally preoccupied. We will continue to work with the patient in group therapy, milieu therapy, and adjust the medications as needed. JOB# [id number]
[2020-02-07] MEDS: Benztropine 1 MG TAB PO SCH (21:35)
[2020-02-08] MEDS: Pantoprazole 40 mg EC Tab PO SCH (06:37)
--- NOTE | 2020-02-08 14:09 | Progress Notes ---
DATE: 02/08/2020 Case was discussed with staff of the patient, reviewed records. The patient continues to be rambling and confused, though he knows the date, but unable to state a safe plan for his self-care. Continues to be unpredictable. He is tremulous, shaky, seems like he has Parkinson's disease. No side effects with the medication, no sedation, no nausea. He sleeps well. He eats well. Isolating himself. Cannot engage in a meaningful conversation. Continues to be internally preoccupied. I will be increasing his Seroquel to 125 mg at bedtime. We will continue outpatient group therapy, milieu therapy, and adjust the medications as needed including Seroquel 125 mg at bedtime. JOB# [id number]
--- NOTE | 2020-02-08 16:12 | Internal Medicine Prog Note ---
Internal Medicine Subjective - Subjective Service Date: 02/08/20 (Late entry) Patient seen and examined:: without staff Patient is:: awake Per staff patient has:: no adverse event, no episodes of fall Internal Medicine Objective - Results Result Diagrams: 01/30/20 09:10 01/30/20 09:10 Recent Labs: Laboratory Last Values WBC 7.2 K/uL (4.8-10.8) 01/30/20 09:10 RBC 4.13 MIL/uL (4.2-6.2) L 01/30/20 09:10 Hgb 13.4 g/dL (14.0-18.0) L 01/30/20 09:10 Hct 39.9 % (36-54) 01/30/20 09:10 MCV 97 fL (79.0-98.0) 01/30/20 09:10 MCH 32 pg (27-31) H 01/30/20 09:10 MCHC 34 % (32-36) 01/30/20 09:10 RDW 13.6 % (9.0-15.0) 01/30/20 09:10 Plt Count 287 K/uL (130-430) 01/30/20 09:10 MPV 7.5 fl (7.4-10.4) 01/30/20 09:10 Neut % (Auto) 75.1 % (40-70) H 01/30/20 09:10 Lymph % (Auto) 13.1 % (20.5-51.5) L 01/30/20 09:10 [place] % (Auto) 10.4 % (1.7-9.3) H 01/30/20 09:10 Eos % (Auto) 1.1 % (0-4) 01/30/20 09:10 Baso % (Auto) 0.3 % (0.0-2.0) 01/30/20 09:10 Neut # (Auto) 5.4 K/uL (1.8-7.7) 01/30/20 09:10 Lymph # (Auto) 0.9 K/uL (1.0-5.5) 01/30/20 09:10 [place] # (Auto) 0.7 K/uL (0.0-1.0) 01/30/20 09:10 Eos # (Auto) 0.1 K/uL (0.0-0.4) 01/30/20 09:10 Baso # (Auto) 0.0 K/uL (0.0-0.2) 01/30/20 09:10 Sodium 133 mmol/L (136-145) L 01/30/20 09:10 Potassium 4.2 mmol/L (3.5-5.1) 01/30/20 09:10 Chloride 98 mmol/L (98-107) 01/30/20 09:10 Carbon Dioxide 32 mmol/L (23-29) H 01/30/20 09:10 Anion Gap 7 (5-15) 01/30/20 09:10 BUN 21 mg/dL (8-21) 01/30/20 09:10 Creatinine 0.70 mg/dL (0.70-1.30) 01/30/20 09:10 Glucose 107 mg/dL (70-99) H 01/30/20 09:10 POC Glucose 104 MG/DL (70 - 105) 02/03/20 06:33 Calcium 8.7 mg/dL (8.4-10.2) 01/30/20 09:10 Total Bilirubin 0.4 mg/dL (0.0-1.0) 01/30/20 09:10 AST 15 U/L (10-37) 01/30/20 09:10 ALT 26 U/L (12-78) 01/30/20 09:10 Alkaline Phosphatase 46 U/L (46-116) 01/30/20 09:10 Total Protein 6.7 g/dL (6.4-8.3) 01/30/20 09:10 Albumin 3.0 g/dL (3.4-5.0) L 01/30/20 09:10 Triglycerides 29 mg/dL (<150) 01/26/20 12:35 Cholesterol 149 mg/dL (<200) 01/26/20 12:35 LDL Cholesterol Direct 74 mg/dL (75-193) L 01/26/20 12:35 HDL Cholesterol 59 mg/dL (23-92) 01/26/20 12:35 Valproic Acid 53 ug/mL (50-100) 02/05/20 15:00 Coronavirus (PCR) Negative (Negative) 02/01/20 13:20 - Physical Exam Vitals and I&O: Vital Signs Temp 97.2 F 02/08/20 14:00 Pulse 97 02/08/20 14:00 Resp 18 02/08/20 14:00 BP 111/55 02/08/20 14:00 Pulse Ox 95 02/08/20 14:00 Intake & Output 02/07/20 02/08/20 02/08/20 18:59 06:59 18:59 Intake Total 1000 240 Balance 1000 240 Intake: Oral 1000 240 Other: # Voids 4 2 # Bowel Movements 1 0 Active Medications: Current Medications Acetaminophen (Tylenol) 650 mg PO Q4H PRN PRN Reason: Pain (Mild 1-3) Stop: 03/25/20 22:23 Last Admin: 02/02/20 20:50 Dose: 650 mg Acetaminophen (Tylenol) 650 mg PO Q4H PRN PRN Reason: Temperature above 101 Stop: 03/25/20 23:13 Al Hydrox/Mg Hydrox/Simethicone (Maalox) 30 ml PO Q4HR PRN PRN Reason: GI DISTRESS Stop: 03/25/20 22:23 Benztropine Mesylate (Cogentin) 1 mg PO HS [facility] Stop: 03/27/20 20:59 Last Admin: 02/07/20 21:35 Dose: 1 mg Divalproex Sodium (Depakote Dr) 250 mg PO TID [facility]; Protocol Stop: 04/02/20 13:59 Last Admin: 02/08/20 13:52 Dose: 250 mg Hydrochlorothiazide (Hctz) 12.5 mg PO DAILY [facility] Stop: 03/26/20 08:59 Last Admin: 02/08/20 08:28 Dose: 12.5 mg Lorazepam (Ativan) 0.5 mg PO Q4HR PRN; Protocol PRN Reason: Agitation Stop: 04/03/20 11:29 Last Admin: 02/05/20 22:43 Dose: 0.5 mg Losartan Potassium (Cozaar) 100 mg PO DAILY [facility] Stop: 03/26/20 08:59 Last Admin: 02/08/20 08:50 Dose: 100 mg Magnesium Hydroxide (Milk Of Magnesia) 30 ml PO HS PRN PRN Reason: Constipation Memantine (Namenda) 5 mg PO DAILY [facility] Stop: 04/05/20 08:59 Last Admin: 02/08/20 08:27 Dose: 5 mg Pantoprazole Sodium (Protonix) 40 mg PO QDAC [facility] Stop: 03/28/20 09:59 Last Admin: 02/08/20 06:37 Dose: 40 mg Primidone (Mysoline) 50 mg PO HS [facility] Stop: 03/26/20 20:59 Last Admin: 02/07/20 21:37 Dose: 50 mg Quetiapine Fumarate 100 mg/ (Quetiapine Fumarate 25 mg) 125 mg PO HS [facility] Stop: 04/08/20 20:59 Zolpidem Tartrate (Ambien) 5 mg PO HS PRN PRN Reason: Insomnia Stop: 03/25/20 22:23 Last Admin: 02/07/20 21:35 Dose: 5 mg General: weak HEENT: NC/AT Neck: Supple Lungs: CTAB Cardiovascular: RRR, Normal S1, Normal S2 Abdomen: soft Extremities: clear Internal Medicine Assmt/Plan - Assessment Assessment: 1. HTN 2. Parkinsons - Plan Plan: continue cozaar and HCTZ for BP discussed with r.n. reviewed medical records Nutritional Asmnt/Malnutr-PDOC - Dietary Evaluation Malnutrition Findings (Please click <Entered> for more info): Nutritional Asmnt/Malnutrition Start: 01/29/20 14: 36 Text: Status: Complete Freq: Protocol: Document 01/29/20 14:36 KATH (Rec: 01/29/20 14:38 KATH [id number]) Nutritional Asmnt/Malnutrition Patient General Information Nutritional Screening Moderate Risk Diagnosis Acute Psychosis with aggression and paranoia Pertinent Medical Hx/Surgical Hx Parkinsons Disease, HTN Subjective Information Pt is a 65-year-old male admitted on 01/24 d/t acute psychosis with aggression and paranoia. Pt is eating an estimated 50% of meals Per Meal/Nutrition Activity Record . Dietary is currently providing an estimated 2000 kcals and 95 gm Pro, per Pt PO intake this is providing an estimated 1000 kcals and 45gm Pro to meet 57% kcal and 64% Pro needs- inadequate. Pt ate 75-100% meals first admit day and refused meals the following day. Pt requested a different lunch than was provided today, kitchen complied. Per nurse note (01/26 ), pt requires assistance with eating d/t involuntary tremors on BUE. Pt was in the community room at activity table during visit. Pt noted to have unclear speech. Will continue to monitor PO intake, adding Ensure Enlive on lunch tray to encourage increased kcal and protein intake. Anthropometrics HT: 63 WT: 155 LB (70.45 kg) BMI: 19.47(normal) GI/ Skin Integrity GI: WNL, Soft, Flat, Non- tender BM: 01/27 x1 I/O: 1090/Not Noted Skin: Reddened, erythema Jermaine: 17 Diet Order: NA2GM Estimated Energy Needs: ( Geriatric, CBW) 6379-8778 kcals (25-30 kcals/ kg) 70-85g Pro (1.0-1.2 g/kg) 3920-9598 ml (25-30 ml/kg) Current Diet Order/ Nutrition Support NA2GM Pertinent Medications Maalox (PRN), Hydrochlorothiazide, Cozaar, MOM (PRN), Protonix Pertinent Labs No Pertinent Labs Nutritional Hx/Data Height 1.91 m Height (Calculated Centimeters) 190.5 Current Weight (lbs) 70.307 kg Weight (Calculated Kilograms) 70.3 Weight (Calculated Grams) 76368.8 [place] Body Weight 196 LB (89.09 kg) % [place] Body Weight 79 Body Mass Index (BMI) 19.3 Weight Status Approriate GI Symptoms Last BM 01/27 x1 Skin Integrity/Comment: Skin: Reddened, erythema Jermaine: 17 Current %PO Fair (50-74%) Estimated Nutritional Goals BEE in Kcals: Using Current wt Calories/Kcals/Kg 5009-1619 Kcals Calculated 25-30 Protein: Using Current wt Protein g/k.0-1.2 Protein Calculated 70-85 Fluid: ml 9903-5654 ml (25-30 ml/kg) Nutritional Problem No current Nutrition Prob Problem No nutrition diagnosis at this time. Etiology N/A Signs/Symptoms: N/A Malnutrition Related to Morbid Obesity Malnutrition related to morbid obesity No Intervention/Recommendation Comments 1. Continue NA2GM diet as tolerated. 2. Add Ensure Enlive to lunch tray (completed). Expected Outcomes/Goals Expected Outcomes/Goals 1. PO intake to meet 75% of estimated nutritional needs. 2. Monitor PO intake, wt, nutrition related labs, and skin integrity. 3. F/U as moderate risk in 3-5 days, /-7
[2020-02-08] MEDS: Benztropine 1 MG TAB PO SCH (21:09)
[2020-02-09] MEDS: Pantoprazole 40 mg EC Tab PO SCH (06:31)
--- NOTE | 2020-02-09 16:10 | Progress Notes ---
DATE: SUBJECTIVE: The patient was seen, chart reviewed, and discussed with staff. The patient continues to be very tremulous continues to be somewhat confused, unable or unwilling to answer questions in a coherent manner. He has, however, been compliant with medications, denying any undue side effects at this time. PLAN: We will continue the patient on current medications and titrate as needed. JOB# [id number]
[2020-02-09] MEDS: Benztropine 1 MG TAB PO SCH (21:25)
[2020-02-10] MEDS: Pantoprazole 40 mg EC Tab PO SCH (08:55)
--- NOTE | 2020-02-10 16:38 | Progress Notes ---
DATE: SUBJECTIVE: The patient was seen, chart reviewed, and discussed with staff. The patient continues to be very disoriented, disorganized, and confused, not able to answer most questions. He has, however, been compliant with medications and generally following unit rules, albeit with some redirections. PLAN: The patient continues to be unpredictable and disoriented. It is felt that he will require inpatient care center facility and treatment. We will monitor the patient on a daily basis for response to medications and titrate medications as needed. JOB# [id number]
[2020-02-10] MEDS: Benztropine 1 MG TAB PO SCH (21:08)
[2020-02-11] MEDS: Pantoprazole 40 mg EC Tab PO SCH (06:55)
--- NOTE | 2020-02-11 12:59 | Discharge Summary ---
DATE OF DISCHARGE: 02/11/2020 IDENTIFYING INFORMATION: The patient is a 64-year-old male. HISTORY OF PRESENT ILLNESS: The patient brought from a [facility]. He was argumentative, aggressive, paranoid, needing a lot of escalation verbal, the patient reports "I think they are stealing from me. I think are pitt, get them out of me." He was a poor historian, limited, need a lot of direction, easily irritable. History of schizoaffective disorder. COURSE IN THE HOSPITAL: The patient was started on medications. The patient was started on Depakote increased to 250 mg 3 times a day. He also was started on Seroquel increased to 125 mg at bedtime, Namenda was added 5 mg was increased to twice a day because of his dementing process. The patient progressively got better, he was no longer acting out or aggressive. He was sleeping well, eating well. He was also given Cogentin as needed for EPS. So as the patient was no longer acting out, he is sleeping well, eating well, we felt he could be discharged to a lesser level of care. FINAL DIAGNOSIS: Schizoaffective disorder, bipolar type. The patient's medical diagnosis as per medical doctor. The patient will be going back to the nursing facility with followup with the psychiatrist and primary care physician. EXPECTED OUTCOME: Stable if the patient complies with the above. ADDENDUM The patient is functioning upon discharge. The patient can take care of his ADLs; however, he cannot function well on his own ,he isolates. He is demented , does not know how to make friends that he can express his needs and wants, can take care of ADLs. JOB# [id number] GENE
--- NOTE | 2020-02-11 17:21 | Internal Medicine Prog Note ---
Internal Medicine Subjective - Subjective Service Date: 02/11/20 (Late entry) Patient seen and examined:: without staff (no fevers no cough no sob) Patient is:: awake Per staff patient has:: no adverse event, no episodes of fall Internal Medicine Objective - Results Result Diagrams: 01/30/20 09:10 01/30/20 09:10 Recent Labs: Laboratory Last Values WBC 7.2 K/uL (4.8-10.8) 01/30/20 09:10 RBC 4.13 MIL/uL (4.2-6.2) L 01/30/20 09:10 Hgb 13.4 g/dL (14.0-18.0) L 01/30/20 09:10 Hct 39.9 % (36-54) 01/30/20 09:10 MCV 97 fL (79.0-98.0) 01/30/20 09:10 MCH 32 pg (27-31) H 01/30/20 09:10 MCHC 34 % (32-36) 01/30/20 09:10 RDW 13.6 % (9.0-15.0) 01/30/20 09:10 Plt Count 287 K/uL (130-430) 01/30/20 09:10 MPV 7.5 fl (7.4-10.4) 01/30/20 09:10 Neut % (Auto) 75.1 % (40-70) H 01/30/20 09:10 Lymph % (Auto) 13.1 % (20.5-51.5) L 01/30/20 09:10 [place] % (Auto) 10.4 % (1.7-9.3) H 01/30/20 09:10 Eos % (Auto) 1.1 % (0-4) 01/30/20 09:10 Baso % (Auto) 0.3 % (0.0-2.0) 01/30/20 09:10 Neut # (Auto) 5.4 K/uL (1.8-7.7) 01/30/20 09:10 Lymph # (Auto) 0.9 K/uL (1.0-5.5) 01/30/20 09:10 [place] # (Auto) 0.7 K/uL (0.0-1.0) 01/30/20 09:10 Eos # (Auto) 0.1 K/uL (0.0-0.4) 01/30/20 09:10 Baso # (Auto) 0.0 K/uL (0.0-0.2) 01/30/20 09:10 Sodium 133 mmol/L (136-145) L 01/30/20 09:10 Potassium 4.2 mmol/L (3.5-5.1) 01/30/20 09:10 Chloride 98 mmol/L (98-107) 01/30/20 09:10 Carbon Dioxide 32 mmol/L (23-29) H 01/30/20 09:10 Anion Gap 7 (5-15) 01/30/20 09:10 BUN 21 mg/dL (8-21) 01/30/20 09:10 Creatinine 0.70 mg/dL (0.70-1.30) 01/30/20 09:10 Glucose 107 mg/dL (70-99) H 01/30/20 09:10 POC Glucose 104 MG/DL (70 - 105) 02/03/20 06:33 Calcium 8.7 mg/dL (8.4-10.2) 01/30/20 09:10 Total Bilirubin 0.4 mg/dL (0.0-1.0) 01/30/20 09:10 AST 15 U/L (10-37) 01/30/20 09:10 ALT 26 U/L (12-78) 01/30/20 09:10 Alkaline Phosphatase 46 U/L (46-116) 01/30/20 09:10 Total Protein 6.7 g/dL (6.4-8.3) 01/30/20 09:10 Albumin 3.0 g/dL (3.4-5.0) L 01/30/20 09:10 Triglycerides 29 mg/dL (<150) 01/26/20 12:35 Cholesterol 149 mg/dL (<200) 01/26/20 12:35 LDL Cholesterol Direct 74 mg/dL (75-193) L 01/26/20 12:35 HDL Cholesterol 59 mg/dL (23-92) 01/26/20 12:35 Valproic Acid 53 ug/mL (50-100) 02/05/20 15:00 Coronavirus (PCR) Negative (Negative) 07/03/20 13:20 - Physical Exam Vitals and I&O: Vital Signs Temp 98.3 F 02/11/20 14:00 Pulse 85 02/11/20 14:00 Resp 20 02/11/20 14:00 BP 97/58 02/11/20 14:00 Pulse Ox 98 02/11/20 14:00 Intake & Output 02/10/20 02/11/20 02/11/20 18:59 06:59 18:59 Intake Total 1100 120 Output Total 4 Balance 1096 120 Intake: Oral 1100 120 Output: Urine 4 Other: # Voids 3 # Bowel Movements 1 Stool Characteristics Formed Brown Active Medications: Current Medications Acetaminophen (Tylenol) 650 mg PO Q4H PRN PRN Reason: Pain (Mild 1-3) Stop: 03/25/20 22:23 Last Admin: 02/02/20 20:50 Dose: 650 mg Acetaminophen (Tylenol) 650 mg PO Q4H PRN PRN Reason: Temperature above 101 Stop: 03/25/20 23:13 Al Hydrox/Mg Hydrox/Simethicone (Maalox) 30 ml PO Q4HR PRN PRN Reason: GI DISTRESS Stop: 03/25/20 22:23 Benztropine Mesylate (Cogentin) 1 mg PO HS [facility] Stop: 03/27/20 20:59 Last Admin: 02/10/20 21:08 Dose: 1 mg Divalproex Sodium (Depakote Dr) 250 mg PO TID [facility]; Protocol Stop: 04/02/20 13:59 Last Admin: 02/11/20 13:18 Dose: 250 mg Hydrochlorothiazide (Hctz) 12.5 mg PO DAILY [facility] Stop: 03/26/20 08:59 Last Admin: 02/11/20 08:28 Dose: 12.5 mg Lorazepam (Ativan) 0.5 mg PO Q4HR PRN; Protocol PRN Reason: Agitation Stop: 04/03/20 11:29 Last Admin: 02/11/20 16:34 Dose: 0.5 mg Losartan Potassium (Cozaar) 100 mg PO DAILY [facility] Stop: 03/26/20 08:59 Last Admin: 02/11/20 08:27 Dose: 100 mg Magnesium Hydroxide (Milk Of Magnesia) 30 ml PO HS PRN PRN Reason: Constipation Memantine (Namenda) 5 mg PO BID [facility] Stop: 04/11/20 16:59 Last Admin: 02/11/20 16:34 Dose: 5 mg Pantoprazole Sodium (Protonix) 40 mg PO QDAC [facility] Stop: 03/28/20 09:59 Last Admin: 02/11/20 06:55 Dose: 40 mg Primidone (Mysoline) 50 mg PO HS [facility] Stop: 03/26/20 20:59 Last Admin: 02/10/20 21:07 Dose: 50 mg Quetiapine Fumarate 100 mg/ (Quetiapine Fumarate 25 mg) 125 mg PO HS [facility] Stop: 04/08/20 20:59 Last Admin: 02/10/20 21:08 Dose: 125 mg Zolpidem Tartrate (Ambien) 5 mg PO HS PRN PRN Reason: Insomnia Stop: 03/25/20 22:23 Last Admin: 02/10/20 21:08 Dose: 5 mg General: weak HEENT: NC/AT Neck: Supple Lungs: CTAB Cardiovascular: RRR, Normal S1, Normal S2 Abdomen: soft Extremities: clear Internal Medicine Assmt/Plan - Assessment Assessment: 1. HTN 2. Parkinsons - Plan Plan: continue cozaar and HCTZ for BP discussed with r.n. reviewed medical records Nutritional Asmnt/Malnutr-PDOC - Dietary Evaluation Malnutrition Findings (Please click <Entered> for more info): Nutritional Asmnt/Malnutrition Start: 01/29/20 14: 36 Text: Status: Complete Freq: Protocol: Document 01/29/20 14:36 KATH (Rec: 01/29/20 14:38 KATH [id number]) Nutritional Asmnt/Malnutrition Patient General Information Nutritional Screening Moderate Risk Diagnosis Acute Psychosis with aggression and paranoia Pertinent Medical Hx/Surgical Hx Parkinsons Disease, HTN Subjective Information Pt is a 65-year-old male admitted on 01/24 d/t acute psychosis with aggression and paranoia. Pt is eating an estimated 50% of meals Per Meal/Nutrition Activity Record . Dietary is currently providing an estimated 2000 kcals and 95 gm Pro, per Pt PO intake this is providing an estimated 1000 kcals and 45gm Pro to meet 57% kcal and 64% Pro needs- inadequate. Pt ate 75-100% meals first admit day and refused meals the following day. Pt requested a different lunch than was provided today, kitchen complied. Per nurse note (01/26 ), pt requires assistance with eating d/t involuntary tremors on BUE. Pt was in the community room at activity table during visit. Pt noted to have unclear speech. Will continue to monitor PO intake, adding Ensure Enlive on lunch tray to encourage increased kcal and protein intake. Anthropometrics HT: 63 WT: 155 LB (70.45 kg) BMI: 19.47(normal) GI/ Skin Integrity GI: WNL, Soft, Flat, Non- tender BM: 01/27 x1 I/O: 1090/Not Noted Skin: Reddened, erythema Jermaine: 17 Diet Order: NA2GM Estimated Energy Needs: ( Geriatric, CBW) 6924-3289 kcals (25-30 kcals/ kg) 70-85g Pro (1.0-1.2 g/kg) 2902-1581 ml (25-30 ml/kg) Current Diet Order/ Nutrition Support NA2GM Pertinent Medications Maalox (PRN), Hydrochlorothiazide, Cozaar, MOM (PRN), Protonix Pertinent Labs No Pertinent Labs Nutritional Hx/Data Height 1.91 m Height (Calculated Centimeters) 190.5 Current Weight (lbs) 70.307 kg Weight (Calculated Kilograms) 70.3 Weight (Calculated Grams) 30714.8 [place] Body Weight 196 LB (89.09 kg) % [place] Body Weight 79 Body Mass Index (BMI) 19.3 Weight Status Approriate GI Symptoms Last BM 01/27 x1 Skin Integrity/Comment: Skin: Reddened, erythema Jermaine: 17 Current %PO Fair (50-74%) Estimated Nutritional Goals BEE in Kcals: Using Current wt Calories/Kcals/Kg 2087-2882 Kcals Calculated 25-30 Protein: Using Current wt Protein g/k.0-1.2 Protein Calculated 70-85 Fluid: ml 2732-7348 ml (25-30 ml/kg) Nutritional Problem No current Nutrition Prob Problem No nutrition diagnosis at this time. Etiology N/A Signs/Symptoms: N/A Malnutrition Related to Morbid Obesity Malnutrition related to morbid obesity No Intervention/Recommendation Comments 1. Continue NA2GM diet as tolerated. 2. Add Ensure Enlive to lunch tray (completed). Expected Outcomes/Goals Expected Outcomes/Goals 1. PO intake to meet 75% of estimated nutritional needs. 2. Monitor PO intake, wt, nutrition related labs, and skin integrity. 3. F/U as moderate risk in 3-5 days, 01/31-02/02
[2020-02-11] MEDS: Benztropine 1 MG TAB PO SCH (20:33)
[2020-02-12] MEDS: Pantoprazole 40 mg EC Tab PO SCH (06:42)
--- NOTE | 2020-02-13 02:57 | Progress Notes ---
DATE: 02/12/2020 Discharege Addendum Case was discussed with staff of the patient, reviewed records. The patient was supposed to have been discharged yesterday; however, that was postponed for transportation and placement purposes. Place was not ready to take him, but they told that they are ready to take him today. The patient is still doing the same. He is stable. Discharge diagnosis and plan stay the same and the patient will be discharged today. JOB# [id number] [email or web address]
== END 2020-02-12 15:30 | DRG 885 ==
LOC: GERO 19:21
PROVIDERS: ADMIT Psychiatry & Neurology Psychiatry; ATTEND Psychiatry & Neurology Psychiatry
DX: F25.0 Schizoaffective disorder, bipolar type (principal); F23 Brief psychotic disorder; E44.0 Moderate protein-calorie malnutrition; Z68.1 Body mass index [BMI] 19.9 or less, adult; I10 Essential (primary) hypertension; G20 Parkinson's disease; F03.90 Unspecified dementia, unspecified severity, without behavioral disturbance, psychotic disturbance, mood disturbance, and anxiety; Z20.828 Contact with and (suspected) exposure to other viral communicable diseases
CPT/HCPCS: 36415-UA; 80053-TC; 80061-TC; 80164-TC; 82948-90; 83036-90; 85025-TC; 90899; 97530; G0410; U0003-CS; X3904; Z7610